=== PATIENT | female | born 2000 | race African-American/Black ===

== ENCOUNTER 2022-07-17 10:44 | Outpatient (REF) | payer OTHER, BC, SELFPAY ==
--- NOTE | ~2022-07-17 | XR_ITS ---
EXAMINATION: XR LUMBOSACRAL SPINE CLINICAL INFORMATION: Fracture, unspecified lumbar vertebra COMPARISON: None within our electronic picture archive. TECHNIQUE: Three views of the lumbosacral spine. FINDINGS: Posterior fusion hardware of the thoracic spine terminating at the T11 level is partially included in the [id number]. There is a mild compression fracture deformity of the superior endplate of T11. There are five segmented, nonrib-bearing vertebra of the lumbar spine. The lumbar vertebral bodies have normal height and alignment. The curvature of the lumbar spine is normal. The disc spaces are maintained. No pars interarticularis defect or lumbar vertebral compression fracture. The anterior and posterior elements are intact. No lytic or osteoblastic lesion. Sacrum and sacroiliac joints are normal. XR/XR lumbar spine 2-3V IMPRESSION: * No radiographic evidence of fracture or malalignment of the lumbar spine. * The thoracic spine posterior fusion hardware is partially included in the [id number], and there is a mild compression fracture affecting the T11 superior endplate.
== END 2022-07-17 10:45 | disposition home or self-care (01) ==
LOC: HO.HMGCX 10:44
PROVIDERS: PCP Internal Medicine; Visit Provider Internal Medicine
DX: S32.009A Unspecified fracture of unspecified lumbar vertebra, initial encounter for closed fracture (principal)
CPT/HCPCS: 72100

== ENCOUNTER 2022-12-26 12:03 | Outpatient (REF) | payer OTHER, BC, SELFPAY ==
[2022-12-26 14:03] LABS: MANUAL DIFF FLAG NO
[2022-12-26 14:13] LABS: Basophils Absolute Auto 0.1 X10*3/uL (0.0-0.2); Basophils Percent Auto 0.5 % (0-2); Eosinophils Absolute Auto 0.1 X10*3/uL (0.0-0.4); Eosinophils Percent Auto 1.2 % (0-4); Hematocrit 44.3 % (37.0-47.0); Hemoglobin 14.6 g/dl (12.0-16.0); Imm Gran Abs Auto 0.04 X10*3/uL (0.00-0.03); Imm Gran Pct Auto 0.4 % (0.0-0.4); Lymphocytes Absolute Auto 1.7 X10*3/uL (1.2-4.9); Lymphocytes Percent Auto 16.7 % (20-40); Mean Corpuscular Hemoglobin 29.4 pg (27.0-33.0); Mean Corpuscular Volume 89.1 fL (80.0-98.0); Mean Platelet Volume 9.9 fL (9.4-12.3); Monocytes Absolute Auto 0.6 X10*3/uL (0.1-1.2); Monocytes Percent Auto 5.6 % (2-11); Neutrophils Absolute Auto 7.7 x10*3/uL (2.0-8.3); Neutrophils Percent Auto 75.6 % (45-73); Platelet Count 257 X10*3/uL (160-400); Red Blood Count 4.97 X10*6/uL (4.20-5.50); Red Cell Distribution Width 11.7 % (11.0-16.0); White Blood Count 10.2 X10*3/uL (4.8-10.8)
[2022-12-26 15:33] LABS: Alanine Aminotransferase 9 U/L (0-31); Anion Gap 13 (12-20); Aspartate Amino Transferase 21 U/L (5-31); Blood Urea Nitrogen 11 mg/dL (9-16); Calcium 9.8 mg/dL (8.4-10.2); Carbon Dioxide 24 mmol/L (22-29); Chloride 104 mmol/L (96-108); Cholesterol 179 mg/dL; Estimated Glomerular Filt Rate > 60; Glucose Fasting 70 mg/dL (60-99); HDL Cholesterol 68 mg/dL; LDL Cholesterol Calculated 98 mg/dl; Potassium 4.2 mmol/L (3.3-5.1); Sodium 137 mmol/L (135-145); Triglycerides 68 mg/dL; Vitamin D 25-OH Total 32.2 ng/mL (>30)
== END 2022-12-26 12:04 | disposition home or self-care (01) ==
LOC: HO.HMGCLDS 12:03
PROVIDERS: PCP Internal Medicine; Visit Provider Internal Medicine
DX: Z00.01 Encounter for general adult medical examination with abnormal findings (principal); Z13.220 Encounter for screening for lipoid disorders; F41.8 Other specified anxiety disorders; R53.83 Other fatigue
CPT/HCPCS: 36415; 80048; 80061; 82306; 84450; 84460; 85025